=== PATIENT | male | born 1945 | race Hispanic/Latino ===

== ENCOUNTER 2022-04-01 15:07 | Inpatient (IN) | payer MEDICARE ==
[~2022-04-01] VITALS: Ht 172.7 cm; Wt 103.4 kg
[2022-04-01 15:47] VITALS: BP 121/52
[2022-04-01 16:27] LABS: BASOPHILS % 0.3 % (0.0-1.0); EOSINOPHILS % 0.1 % (0.0-6.0); HEMOGLOBIN 13.3 g/dL (14.0-18.0); LYMPHOCYTES # (AUTO) 0.7 (1.0-3.2); LYMPHOCYTES % 6.8 % (18.0-39.1); MEAN CORPUSCULAR HEMOGLOBIN 28.3 pg (28-32); MEAN CORPUSCULAR HGB CONC 32.4 g/dL (31-35); MEAN CORPUSCULAR VOLUME 87.2 fL (81-99); MONOCYTES # (AUTO) 0.8 (0.2-0.8); MONOCYTES % 7.6 % (4.4-11.3); NEUTROPHILS # (AUTO) 9.1 (2.1-6.9); NEUTROPHILS % 84.7 % (38.7-80.0); PLATELET COUNT 149 x10e3/uL (140-360); RED CELL DISTRIBUTION WIDTH 15.3 % (11.7-14.4)
[2022-04-01] MEDS ORDERED: GLIPIZIDE ER5 MG PO (16:33)
[2022-04-01] MEDS ORDERED: ISOSORBIDE MONO30 MG PO (16:33)
[2022-04-01] MEDS ORDERED: LISINOPRIL10 MG PO (16:33)
[2022-04-01] MEDS ORDERED: LASIX20 MG PO (16:33)
[2022-04-01] MEDS ORDERED: CEFDINIR300 MG PO (16:33)
[2022-04-01] MEDS ORDERED: TERAZOSIN HCL5 MG PO (16:33)
[2022-04-01] MEDS ORDERED: SIMVASTATIN20 MG PO (16:33)
[2022-04-01] MEDS: SODIUM CHLORIDE 0.9% 1000ML 1,000 ML IV SCH (16:35)
[2022-04-01 16:44] LABS: ANION GAP 12.5 mmol/L (8-16); CALCIUM 8.4 mg/dL (8.4-10.2); CREATININE, SERUM 2.1 mg/dL (0.72-1.25); POTASSIUM 4.5 mmol/L (3.5-5.1)
[2022-04-01 16:50] VITALS: BP 121/52
[2022-04-01 17:18] VITALS: BP 121/52
[2022-04-01 17:23] LABS: CLARITY,URINE SL CLOUDY (CLEAR); COLOR,URINE YELLOW (YELLOW); KETONES,URINE NEGATIVE (NEGATIVE); LEUKOCYTE ESTERASE ,URINE SMALL (NEGATIVE); NITRITE,URINE NEGATIVE (NEGATIVE); PROTEIN,URINE DIPSTICK NEGATIVE (NEGATIVE); URINE UROBILINOGEN 0.2 mg/dL (0.2 - 1)
[2022-04-01 17:33] LABS: BACTERIA,URINE MANY /HPF
[2022-04-01] MEDS: HYDROCODONE/APAP 5MG-325MG TAB PO PRN (18:08)
[2022-04-01 19:39] VITALS: BP 106/61
[2022-04-01 21:10] VITALS: BP 106/61
[2022-04-01] MEDS ORDERED: ONDANSETRON HCL INJ 2MG/ML 2ML 2 MG/ML VIAL IV PRN (21:45)
[2022-04-02] VITALS (7 sets, daily range): BP systolic 105–126; BP diastolic 63–68
[2022-04-02] MEDS: SODIUM CHLORIDE 0.9% 1000ML 1,000 ML IV SCH ×3 (02:39→21:45)
[2022-04-02 05:35] LABS: CREATININE, SERUM 1.72 mg/dL (0.72-1.25)
[2022-04-02] MEDS ORDERED: DEXTROSE 50% SYRINGE 50 ML IV PRN (09:00)
[2022-04-02] MEDS: ISOSORBIDE MONONITRATE 30 MG TAB CR PO SCH (10:05)
[2022-04-02] MEDS: TAMSULOSIN HCL 0.4 MG CAP PO SCH ×2 (10:05→16:42)
[2022-04-02] MEDS: INSULIN LISPRO 100 UNIT/1 ML 3ML VIAL SQ SCH ×3 (11:30→20:39)
[2022-04-02] MEDS: HYDROCODONE/APAP 5MG-325MG TAB PO PRN ×2 (15:27→23:48)
[2022-04-02] MEDS: SIMVASTATIN 20 MG TAB PO SCH (20:44)
[2022-04-03] VITALS (7 sets, daily range): BP systolic 111–142; BP diastolic 60–87
[2022-04-03 04:56] LABS: BASOPHILS % 0.5 % (0.0-1.0); EOSINOPHILS # (AUTO) 0.2 (0.0-0.4); EOSINOPHILS % 3.6 % (0.0-6.0); HEMATOCRIT 36.8 % (38.2-49.6); HEMOGLOBIN 11.9 g/dL (14.0-18.0); LYMPHOCYTES # (AUTO) 0.8 (1.0-3.2); LYMPHOCYTES % 13.6 % (18.0-39.1); MEAN CORPUSCULAR HEMOGLOBIN 28.3 pg (28-32); MEAN CORPUSCULAR HGB CONC 32.3 g/dL (31-35); MEAN CORPUSCULAR VOLUME 87.4 fL (81-99); MONOCYTES # (AUTO) 0.6 (0.2-0.8); NEUTROPHILS % 72.1 % (38.7-80.0); PLATELET COUNT 145 x10e3/uL (140-360); RED BLOOD COUNT 4.21 x10e6/uL (4.3-5.7)
[2022-04-03 05:14] LABS: ALBUMIN 2.7 g/dL (3.5-5.0); ALBUMIN/GLOBULIN RATIO 0.7 (0.8-2.0); ANION GAP 11.2 mmol/L (8-16); CALCIUM 7.9 mg/dL (8.4-10.2); CREATININE, SERUM 1.58 mg/dL (0.72-1.25); POTASSIUM 4.2 mmol/L (3.5-5.1)
[2022-04-03] MEDS: INSULIN LISPRO 100 UNIT/1 ML 3ML VIAL SQ SCH ×4 (07:30→21:00)
[2022-04-03] MEDS: TAMSULOSIN HCL 0.4 MG CAP PO SCH ×2 (07:52→16:30)
[2022-04-03] MEDS: ISOSORBIDE MONONITRATE 30 MG TAB CR PO SCH (08:12)
[2022-04-03] MEDS: SODIUM CHLORIDE 0.9% 1000ML 1,000 ML IV SCH ×2 (08:12→16:30)
[2022-04-03] MEDS: SIMVASTATIN 20 MG TAB PO SCH (21:12)
[2022-04-04] VITALS: BP 155/73
[2022-04-04] MEDS: SODIUM CHLORIDE 0.9% 1000ML 1,000 ML IV SCH (02:14)
[2022-04-04 04:00] VITALS: BP 142/68
[2022-04-04 05:36] LABS: CREATININE, SERUM 1.46 mg/dL (0.72-1.25)
[2022-04-04] MEDS: INSULIN LISPRO 100 UNIT/1 ML 3ML VIAL SQ SCH (07:30)
[2022-04-04 08:53] VITALS: BP 150/78
[2022-04-04] MEDS: ISOSORBIDE MONONITRATE 30 MG TAB CR PO SCH (09:00)
[2022-04-04 09:49] VITALS: BP 150/78
[2022-04-04] MEDS: TAMSULOSIN HCL 0.4 MG CAP PO SCH (09:49)
[2022-04-04] MEDS ORDERED: FLOMAX0.4 MG PO (10:07)
[2022-04-04] MEDS ORDERED: NIFEDIPINE ER30 M1 PO (10:07)
[2022-04-04] MEDS ORDERED: OMEPRAZOLE40 MG PO (10:08)
[2022-04-04] MEDS ORDERED: CIPRO500 MG PO (10:08)
== END 2022-04-04 10:36 | disposition home or self-care (01) | DRG 725 ==
LOC: MED/SURG 15:31 → OBSVTOIN 04-02 13:17
PROVIDERS: ADMIT Internal Medicine; ATTEND Internal Medicine
DX: N40.1 Benign prostatic hyperplasia with lower urinary tract symptoms (principal); N17.0 Acute kidney failure with tubular necrosis; N39.0 Urinary tract infection, site not specified; E87.1 Hypo-osmolality and hyponatremia; N13.8 Other obstructive and reflux uropathy; E83.51 Hypocalcemia; E11.22 Type 2 diabetes mellitus with diabetic chronic kidney disease; E86.0 Dehydration; E66.9 Obesity, unspecified; G47.33 Obstructive sleep apnea (adult) (pediatric); D64.9 Anemia, unspecified; N32.0 Bladder-neck obstruction; I12.9 Hypertensive chronic kidney disease with stage 1 through stage 4 chronic kidney disease, or unspecified chronic kidney disease; N18.30 Chronic kidney disease, stage 3 unspecified; K42.9 Umbilical hernia without obstruction or gangrene; R35.1 Nocturia; R33.8 Other retention of urine; K40.90 Unilateral inguinal hernia, without obstruction or gangrene, not specified as recurrent; N28.1 Cyst of kidney, acquired; D35.02 Benign neoplasm of left adrenal gland; K57.90 Diverticulosis of intestine, part unspecified, without perforation or abscess without bleeding; Z68.34 Body mass index [BMI] 34.0-34.9, adult; N50.0 Atrophy of testis; K21.9 Gastro-esophageal reflux disease without esophagitis; R91.1 Solitary pulmonary nodule; Z90.49 Acquired absence of other specified parts of digestive tract; Z87.442 Personal history of urinary calculi; Z20.822 Contact with and (suspected) exposure to COVID-19; Z79.84 Long term (current) use of oral hypoglycemic drugs
CPT/HCPCS: 36415; 71046; 74176; 80048; 80053; 81001; 82948; 83036; 84443; 85025; 87086; 94799; G0378; J0696; J2405; J7030; U0002